=== PATIENT | female | born 1980 | race Caucasian/White ===

== ENCOUNTER 2025-04-10 11:04 | Emergency (ER) | payer OTHER, SELFPAY ==
[2025-04-10 11:08] VITALS: BP 117/66
[2025-04-10] MEDS: TORADOL 15 MG IV (13:12)
[2025-04-10 13:28] LABS: % Basophils 0.5 % (0-2); % Eosinophils 0.6 % (0-6); % Immature Granulocytes 0.2 % (0-0.5); % Lymphocytes 7.2 % (20.5-51.1); % Monocytes 5.8 % (1.7-9.3); % Neutrophils 85.7 % (42.2-75.2); Absolute Eosinophils 0.1 10^3/uL (0-0.7); Absolute Lymphocytes 0.6 10^3/uL (1.2-3.4); Absolute Monocytes 0.5 10^3/uL (0.1-0.6); Absolute Neutrophils 7.3 10^3/uL (1.4-6.5); Hematocrit 34.9 % (37.0-47.0); Hemoglobin 12.3 g/dL (12.0-16.0); Mean Corp Hgb Conc. 35.2 g/dL (33.0-37.0); Mean Corpuscular Hgb 31.1 pg (27.0-31.0); Mean Corpuscular Volume 88.1 fL (81.0-99.0); Mean Platelet Volume 9.4 fL (7.4-10.4); Nucleated Red Blood Cells % 0 %; Platelet Count 165 10^3/uL (130-400); Red Blood Cell Count 3.96 10^6/uL (4.20-5.40); Red Cell Dist. Width 12.3 % (11.5-14.5); White Blood Cell Count 8.5 10^3/uL (4.8-10.8)
[2025-04-10 13:35] LABS: Urine Albumin Negative (Neg - Trace); Urine Bilirubin Negative (Negative); Urine Character Clear (Clear); Urine Color Yellow; Urine Glucose Negative (Negative); Urine Ketone Negative (Negative); Urine Leukocyte Negative (Negative); Urine Nitrite Negative (Negative); Urine Occult Blood Negative (Negative); Urine Urobilinogen Negative (Neg - 1+)
[2025-04-10 13:37] LABS: HCG, Serum Qualitative Screen Negative
[2025-04-10 13:42] VITALS: BP 147/110
[2025-04-10 13:44] LABS: ALT (SGPT) 34 U/L (0-35); AST (SGOT) 28 U/L (14-36); Albumin 3.9 g/dl (3.5-5.0); Alkaline Phosphatase 56 U/L (38-126); Blood Urea Nitrogen 11 mg/dl (7-17); Calcium 9.5 mg/dl (8.4-10.2); Carbon Dioxide 27 mmol/L (22-30); Chloride 109 mmol/L (98-107); Glucose 94 mg/dl (70-99); Lipase 63 U/L (23-300); Potassium 4.2 mmol/L (3.5-5.1); Sodium 138 mmol/L (135-145); Total Bilirubin 0.9 mg/dl (0.2-1.3); Total Protein 6.3 g/dl (6.3-8.2); eGFR > 60.00
[2025-04-10 13:45] VITALS: BMI 28.7
[2025-04-10 14:00] VITALS: BP 140/98
--- NOTE | 2025-04-10 14:39 | ED.GENMED ---
History of Present Illness
<Christine Frazier DO - Last Filed: 04/12/25 06:15>
General
Chief Complaint: Abdominal Pain
Time Seen by Provider: 04/10/25 12:25
History of Present Illness
History of Present Illness:
44-year-old female without significant past medical history presenting for generalized abdominal pain. Patient reports that pain started this morning, woke her up from sleep. She thought that maybe it was from gas, tried Gas-X and other OTC
medications without relief. She had a normal bowel movement this morning, which did not help her symptoms. Denies any vomiting. Reports history of , otherwise no abdominal surgeries. Denies urinary complaints. Denies chest pain or
difficulty breathing. She feels very bloated. Pain radiates to her right shoulder and her right back. Denies additional acute medical complaints
Phy Exam
<Christine Frazier DO - Last Filed: 04/12/25 06:15>
Physical Exam
Physical Exam:
General: Well-appearing, no clinical signs of dehydration, nontoxic and in no acute distress
HEENT: protecting airway
Neck: appears supple
CV: Normal heart rate, regular rhythm
Resp: No accessory muscle use, no increased work of breathing, lungs clear to auscultation bilaterally
Abd: Mild distention with generalized tenderness. No CVA tenderness
Extremities: No deformities, no swelling
Neuro: alert, no focal neurologic deficit
: deferred
Rectal: deferred
Psych: Normal affect
Skin: Intact
Course
<Christine Frazier DO - Last Filed: 04/12/25 06:15>
Orders/Labs/Results
Orders:
Orders
04/10/25
Electrocardiogram (*1) Stat
Comment: DONE EMR
04/10/25 11:13
EKG [Electrocardiogram (*1)] Urgent
Reason for Study: Abdominal Pain
04/10/25 11:14
EKG- Treatment ONCE
04/10/25 12:47
Ketorolac [Toradol] 15 mg IV NOW STA
04/10/25 12:48
CT Abd/pelvis W Iv Cont Urgent
Comment:
Reason For Exam: diffuse pain, distension
Test Result ONCE
04/10/25 13:03
Complete Blood Count/With Diff Urgent
Comprehensive Metabolic Panel Urgent
HCG, Serum Qualitative Screen Urgent
Lipase Urgent
Urinalysis Reflex To Culture Urgent
Date Specimen was Collected: 04/10/25
Time Specimen was Collected: 13:00
04/10/25 14:32
Morphine Sulfate 4 mg IV NOW STA
04/10/25 19:29
HYDROmorphone [Dilaudid] 1 mg IV NOW STA
US Pelvis Only (non-obstetric) Urgent
Reason For Exam: r pelvic pain ? torsion, r ovarian lesion on u/s
04/10/25 19:31
0.9% Sodium Chloride 1000 ml [Nss] 1,000 ml IV BOLUS
Abnormal Lab Results
04/10/25
13:03
RBC 3.96 L 10^6/uL
(4.20-5.40)
Hct 34.9 L %
(37.0-47.0)
MCH 31.1 H pg
(27.0-31.0)
Absolute Neuts (auto) 7.3 H 10^3/uL
(1.4-6.5)
Absolute Lymphs (auto) 0.6 L 10^3/uL
(1.2-3.4)
Neutrophils % 85.7 H %
(42.2-75.2)
Lymphocytes % 7.2 L %
(20.5-51.1)
Chloride 109 H mmol/L
(98-107)
04/10/25 13:03
04/10/25 13:03
Vital Signs
Initial and Last Documented VS:
Initial Vital Signs
Temp Pulse Resp BP Pulse Ox
98.2 F 76 20 117/66 98
04/10/25 11:08 04/10/25 11:08 04/10/25 11:08 04/10/25 11:08 04/10/25 11:08
Last Documented Vital Signs
Temp Pulse Resp BP Pulse Ox
98.2 F 78 18 106/61 97
04/10/25 11:08 04/10/25 14:00 04/10/25 14:00 04/10/25 15:00 04/10/25 19:55
Yessicalt;Oz Yang, - Last Filed: 04/10/25 22:47>
Orders/Labs/Results
Orders:
Orders
04/10/25
Electrocardiogram (*1) Stat
Comment: DONE EMR
04/10/25 11:13
EKG [Electrocardiogram (*1)] Urgent
Reason for Study: Abdominal Pain
04/10/25 11:14
EKG- Treatment ONCE
04/10/25 12:47
Ketorolac [Toradol] 15 mg IV NOW STA
04/10/25 12:48
CT Abd/pelvis W Iv Cont Urgent
Comment:
Reason For Exam: diffuse pain, distension
Test Result ONCE
04/10/25 13:03
Complete Blood Count/With Diff Urgent
Comprehensive Metabolic Panel Urgent
HCG, Serum Qualitative Screen Urgent
Lipase Urgent
Urinalysis Reflex To Culture Urgent
Date Specimen was Collected: 04/10/25
Time Specimen was Collected: 13:00
04/10/25 14:32
Morphine Sulfate 4 mg IV NOW STA
04/10/25 19:29
HYDROmorphone [Dilaudid] 1 mg IV NOW STA
US Pelvis Only (non-obstetric) Urgent
Reason For Exam: r pelvic pain ? torsion, r ovarian lesion on u/s
04/10/25 19:31
0.9% Sodium Chloride 1000 ml [Nss] 1,000 ml IV BOLUS
Abnormal Lab Results
04/10/25
13:03
RBC 3.96 L 10^6/uL
(4.20-5.40)
Hct 34.9 L %
(37.0-47.0)
MCH 31.1 H pg
(27.0-31.0)
Absolute Neuts (auto) 7.3 H 10^3/uL
(1.4-6.5)
Absolute Lymphs (auto) 0.6 L 10^3/uL
(1.2-3.4)
Neutrophils % 85.7 H %
(42.2-75.2)
Lymphocytes % 7.2 L %
(20.5-51.1)
Chloride 109 H mmol/L
(98-107)
04/10/25 13:03
04/10/25 13:03
Vital Signs
Initial and Last Documented VS:
Initial Vital Signs
Temp Pulse Resp BP Pulse Ox
98.2 F 76 20 117/66 98
04/10/25 11:08 04/10/25 11:08 04/10/25 11:08 04/10/25 11:08 04/10/25 11:08
Last Documented Vital Signs
Temp Pulse Resp BP Pulse Ox
98.2 F 78 18 106/61 97
04/10/25 11:08 04/10/25 14:00 04/10/25 14:00 04/10/25 15:00 04/10/25 19:55
<Christine Frazier, DO - Last Filed: 04/12/25 06:15>
MDM/Problems Addressed
MDM/Problems Addressed:
44-year-old female presenting for generalized abdominal pain and bloating. Vital signs are normal.
On exam patient is in no acute distress, however does appear comfortable secondary to pain. Mild to moderate distention with diffuse pain. Concern for acute intra-abdominal pathology such as obstruction versus cholelithiasis/cholecystitis versus
colitis or diverticulitis. Plan for laboratory analysis and CT abdominal imaging. Toradol administered for pain
14:45 -patient's labs relatively unremarkable, however still uncomfortable from pain, will administer morphine
<Christine Frazier DO - Last Filed: 04/12/25 06:15>
*Pulse Oximetry
SaO2: 99
Oxygen Mode of Delivery: Room air
Patient hypoxic: no
*Critical Care Note
Total Time (30-74mins, 75-104mins- exclusive of procedures): Not Applicable
<Oz HHuber Yang DO - Last Filed: 04/10/25 22:47>
Update Note
Update Note:
CT shows complex right ovarian cyst. Pt was aware of this. Radiology report indicates torsion cannot be ruled out by this study. Therefore a u/s obtained which shows good flow. Pt is in the process of scheduling a laparoscopic procedure to remove
address this. Pt actually had an MRI performed recently which showed this was an endometroma. Pt stable for discharge.
ED Attending Note
<Christine Frazier DO - Last Filed: 04/12/25 06:15>
-
Portions of this chart may have been created with voice recognition software.� Occasional wrong word or��sound alike� substitutions may have occurred due to the inherent limitations of voice recognition software.
Discharge Plan
Departure
Patient Disposition: Home (Routine Discharge)
Date of Disposition: 04/10/25
Time of Disposition: 22:36
Patient with high blood pressure during this ER visit?: No
Condition: Good
Discharge Problem:
Pelvic pain, Complex cyst of right ovary
Instructions: Ovarian cyst - ED discharge instructions, Abdominal Pain
Prescriptions:
New
oxycodone 5 mg tablet
5 mg PO Q6H PRN (Reason: Pain) Qty: 12 0RF
Referrals:
Timothy Sauceda DO [Family Provider, Family Practice]
Activity Restrictions/Additional Instructions:
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 There is no evidence for torsion on your ultrasound. Will send a prescription for some pain medicine to help you get through until you have
your laparoscopic surgery
Interventions
Interventions:
*Risk Screen - Suicide Last Done: 04/10/25 11:08
*General Assessment Last Done: 04/10/25 11:08
*Neglect/Abuse Screening Last Done: 04/10/25 11:08
*ED- Fall Risk Assessment Last Done: 04/10/25 11:08
*ED COVID-19 Vaccine History Last Done: 04/10/25 11:08
*Nursing Disposition Last Done: 04/10/25 22:50
HO-Bhrvmn-Ttieikidkt Assessment Last Done: 04/10/25 19:55
Discharge Date and Time
Discharge Date/Time: 04/10/25 22:50
Print Language: GUYANESE
[2025-04-10 15:00] VITALS: BP 106/61
[2025-04-10] MEDS: MORPHINE SULFATE 4 MG IV (15:02)
[2025-04-10] MEDS: DILAUDID 1 MG IV (19:36)
[2025-04-10] MEDS: NSS 1000 IV (19:37)
== END 2025-04-10 22:50 | disposition home or self-care (01) ==
LOC: EMR 11:04
PROVIDERS: EMERGENCY PHYSICIAN Student in an Organized Health Care Education/Training Program; FAMILY PHYSICIAN Family Medicine
DX: R10.2 Pelvic and perineal pain (principal); R14.0 Abdominal distension (gaseous); N83.291 Other ovarian cyst, right side
CPT/HCPCS: 99285; 96375 ×2; 96361; 96374; 74177; 76856; 80053; 81003; 83690; 84703; 85025; 93005; Q9967